=== PATIENT | female | born 1955 | race Caucasian/White ===

== ENCOUNTER 2022-11-08 08:58 | Outpatient (CLI) | payer BC, SELFPAY | END 2022-11-08 08:59 | disposition home or self-care (01) | LOC: NFLDREF 11-11 09:40 | PROVIDERS: PCP Physician Assistant Medical; Referring Provider Physician Assistant Medical; Visit Provider Physician Assistant Medical | DX: Z00.00 Encounter for general adult medical examination without abnormal findings (principal); R53.83 Other fatigue; I10 Essential (primary) hypertension | CPT/HCPCS: 80053; 80061; 82607; 83540; 83550; 84439; 84443; 84481; 86376 ==

== ENCOUNTER 2022-12-23 09:41 | Outpatient (CLI) | payer BC, SELFPAY | END 2022-12-23 09:42 | disposition home or self-care (01) | LOC: RAD 09:42 | PROVIDERS: PCP Physician Assistant Medical; Visit Provider Physician Assistant Medical | DX: I10 Essential (primary) hypertension (principal); R01.1 Cardiac murmur, unspecified | CPT/HCPCS: 93306 ==

== ENCOUNTER 2022-12-26 08:06 | Outpatient (CLI) | payer BC, SELFPAY | END 2022-12-26 08:07 | disposition home or self-care (01) | LOC: NFLDREF 16:37 | PROVIDERS: PCP Physician Assistant Medical; Referring Provider Physician Assistant Medical; Visit Provider Physician Assistant Medical | DX: R53.83 Other fatigue (principal); R74.8 Abnormal levels of other serum enzymes; I10 Essential (primary) hypertension | CPT/HCPCS: 80053; 82728; 86703; 86803 ==

== ENCOUNTER 2023-01-10 19:39 | Outpatient (CLI) | payer BC, SELFPAY ==
--- OUTSIDE RECORDS SUMMARY | 2023-01-10 19:42 | XMS_ITS | Continuity of Care Document ---
Author Name Unknown Organization [facility] Address [address] [address] [place] [address] Phone Care Team Providers Care Water Taxi Captain Name Role Phone Concha Wood CRNA Unavailable Unavailable Allergies, Adverse Reactions, Alerts Substance Reaction Status Criticality levofloxacin Intestinal issues th at turned into yeast infection(moderate) Active No Information morphine itching(moderate)itching(moderate) Active No Information No Known Allergies Resolved No Inform ation Medications Medication Instructions Dosage Effective Dates (start - stop) Status Comments spironolactone 50 mg tablet take 1 tablet by oral route 2 times every day 50 MG - Active Lexapro 10 mg tablet take 1 tablet by oral route every day 10 MG - Active Zilxi 1.5 % topical foam apply by topical route every day a thin layer to the affected area(s) at the same time each day at least 1 hour before bedtime 0.00 - Active citalopram 20 mg tablet take 1 Tablet by oral route every day 20 MG - No Longer Active Procedures Procedure Date Colonoscopy Flex; Dx (sep Pro) 21 Colonoscopy Flex; W/bx 1/mx Level Iv-surg Path Gross/micro 16 Advance Directives Directive Yes / No Effective Date File Name No Information Encounters Encounter Description Practice Location Reason(s) For Visit Diagnoses Date Provider Providers Copied on Encounter [facility], [address] [address], [place], [id number], tel:[phone] [facility] No Information 1 Israel Kern. [address], [place], [place], [id number] , [place]. tel:[phone] Referring Provider: Ronit Rivera MD, [address], [place], [address] . tel:[phone] [facility], [address] [address], [place], [place], [id number], [place] tel:[phone] [facility] GI Symptoms or Concerns (chief complaint) Colon, diverticulosisAlt ernating constipation and diarrheaScreening ColonoscopyScreen ing ColonoscopyPerson al history of colonic polypsEncounter for screening for malignant neoplasm of colonPersonal history of colonic polyps 1 Miguel Aguilar. [address], [place], [place], [id number] , [place]. tel:[phone] Referring Provider: [place], [address] [place], [address]. tel:[phone] [facility], [address] [address], [place], [place], [id number], [place] tel:[phone] [facility] No Information 1 Radha Amor. [address], [place], [place], [id number] , [place]. tel:[phone] [facility], [address] [address], [place], [address], [place] tel:[phone] [facility] Colon polypPersonal history of colonic polypsFamily history of colonic polypsEncounter for screening for malignant neoplasm of colonRectal polypFamily history of colonic polypsPersonal history of colonic polyps Sep- 6 Arnoldo Knott. [address] [facility] [address], [place], [place], [address] , [place]. tel:[phone] Referring Provider: Van[place], [address] [place], [address]. tel:[phone] Family History Family Member Type Diagnosis Age At Onset Problem (finding) Family history of malignant neoplasm of breast in first degree relative Father Problem (finding) Sister Problem (finding) Alive and well Problem (finding) Family history of malignant neoplasm of cervix uteri Mother Problem (finding) malignant neop lasm of breast in first degree relative Daughter Problem (finding) Alive and well Father Problem (finding) Colon polyps Father Problem (finding) Thyroid disorder Mother Problem (finding) malignant neoplasm of c ervix uteri Immunizations Vaccine Date Status Comments SARS-COV-2 (COVID-19) vaccin e, mRNA, spike protein, LNP, preservative free, 30 mcg/0.3mL dose administered Note: [facility] bi-direct ional interface ; Source: Other Registry SARS-COV-2 (COVID-19) vaccin e, mRNA, spike protein, LNP, preservative free, 30 mcg/0.3mL dose administered Note: [facility] bi-direct ional interface ; Source: Other Registry Juan Carlosuria Qd administered Note: [facility] bi-directional interface ; Source: Other Registry tetanus toxoid, reduced diphtheria toxoid, and acellular pertussis vaccine, adsorbed administered Note: [facility] b i-directional interface ; Source: Other Registry Juan Carlosuria Qd administered Note: [facility] bi-directional interface ; Source: Other Registry Juan Carlosuria Qd administered Note: [facility] bi-directional interface ; Source: Other Registry Juan Carlosuria Qd administered Note: [facility] bi-directional interface ; Source: Other Registry tetanus and diphtheria toxoi ds, adsorbed, preservative free, for adult use (2 Lf of tetanus toxoid and 2 Lf of diphtheria toxoid) administered Note: [facility] bi-direct ional interface ; Source: Other Registry Payers Payer name Insurance type Covered constitution party ID Authoriza tion(s) [employer] CI [id number] Social History Type Description Quantity Date Captured Comments Sex Female Smoking Status No Information Chief Complaint And Reason For Visit No Information Reason For Referral Reason For Referral No Information Plan Of Treatment Date Type Action Status No Information History Of Present Illness Encounter Date Complaint History Of Prese nt Illness GI Symptoms or Concerns Functional Status Date Functional Assessmen t No Information Instructions Date Instruction Additional Infor mation Diverticulosis/Diverticulitis Re lated to Colon, diverticulosis High Fiber Diet Related to Colon , diverticulosis Colon Cancer Prevention Related to Colon, diverticulosis Colon Polyps Related to Colon polyp Assessments Type Assessment Date No Information Patient Care Teams Name Effective Dates (start - stop) Status Members No Information
--- OUTSIDE RECORDS SUMMARY | 2023-01-10 19:42 | XMS_ITS | Patient Health Record ---
Author Name Unknown Organization [employer] Address [address] [place], [place] [id number] Care Team Providers Care Systems Programmer Name Role Phone Luzma Griffiths Unavailable [phone] Steven Reyes Unavailable [phone] Natacha Coulter Unavailable [phone] Pedro Marsh Unavailable Unavailable Marion eBan Unavailable [phone] MejíaClaudia Unavailable [phone] Jai Cora Unavailable [phone] PROBLEMS Type Condition ICD9-CM Code PMU55-DQ Code Onset Dates Condition Status W/U Status Risk SNOMED Code Notes Problem Female climacteric state N95.1 confirmed 654777108 Problem Unspecified menopausal and perimenopausa l disorder N95.9 confirmed 379629621 ALLERGIES Allergen (clinical drug ingredient) Drug/Non Drug Allergy documented on EMR Reaction Allergy Type Onset Date Status morphine Morphine Sulfate([facility] Code:[address]-34) Itching Drug Allergy Active Levaquin Gastro Drug Allergy Active Statin Medications Muscle Aches Non Drug Allergy Active ENCOUNTERS from 1955 to 2023-01-10 Encounter Location Date Provider Diagnosis [facility] [address] [place], [place] [id number] Jan, Luzma Griffiths [facility] [address] [place] [address] Aug, Pedro Marsh Unspecified menopausal and perimenopausal disorder N95.9 [facility] [address] [place] [address] Jul, Pedro Marsh Female climacteric state N95.1 and Medication management Z79.899 [place] [address] [place] [address] May, Marion Bean Unspecified menopausal and perimenopausal disorder N95.9 [place] [address] [place] [address] May, Steven Reyes Female climacteric state N95.1 and Medication management Z79.899 [place] [address] [place] [address] Feb, Steven Reyes Unspecified menopausal and perimenopausal disorder N95.9 ; Oily skin R23.4 and Acne L70.9 [place] [address] [place] [address] Feb, Marion Bean Unspecified menopausal and perimenopausal disorder N95.9 [place] [address] [place] [address] November, Marion Bean [place] [address] [place] [address] November, Marion Bean Unspecified menopausal and perimenopausal disorder N95.9 and Breast cancer screening by mammogram Z12.31 [place] [address] [place] [address] November, Luzma Farb Unspecified menopausal and perimenopausal disorder N95.9 [facility] [address] [place], [place] [id number] Aug, Luzma Farb Unspecified menopausal and perimenopausal disorder N95.9 [facility] [address] [place], [place] [id number] Jul, Luzma Farb Female climacteric state N95.1 [facility] [address] [place], [place] [phone] Apr, Luzma Farb [place] [address] [place] [address] Apr, Luzma Farb Unspecified menopausal and perimenopausal disorder N95.9 [facility] [address] [place] [address] Apr, Luzma Farb Unspecified menopausal and perimenopausal disorder N95.9 [facility] [address] [place], [place] [phone] Feb, Cora Jai Unspecified menopausal and perimenopausal disorder N95.9 [facility] [address] [place], [place] [phone] Jan, [facility] [address] [place] [phone] Jan, [facility] [address] [place], [place] [phone] Jan, [place] [address] [place] [address] Jan, Luzma Farb Unspecified menopausal and perimenopausal disorder N95.9 [place] [address] [place] [address] Dec, Luzma Farb Female climacteric N95.1 [place] [address] [place] [address] Dec, Luzma Farb Female climacteric state N95.1 [facility] [address] [place], [place] [phone] Oct, Luzma Farb Unspecified menopausal and perimenopausal disorder N95.9 [facility] [address] [place] [address] Oct, Luzma Farb Female climacteric state N95.1 [facility] [address] [place], [place] [phone] Sep, Luzma Farb Unspecified menopausal and perimenopausal disorder N95.9 [facility] [address] [place], [place] [phone] Sep, Luzma Griffiths [facility] [place] [address] [place] [address] Sep, [facility] climacteric state N95.1 SOCIAL HISTORY Tobacco Use: Social History Observation Description Date Details (start date - stop date) Never Smoker Sex Assigned At : Social History Observation Description Sex Assigned At Unknown Alcohol Screen (Audit-C) Question Answer Notes Did you have a drink containing alcohol in the p ast year? No Points 0 Interpretation Negative Tobacco Use/Smoking Question Answer Notes Are you a never smoker REASON FOR REFERRAL No Information VITAL SIGNS from 1955 to 2023-01-10 Height 60 in Aug, Weight 163.4 lbs Aug, BMI 31.91 kg/m2 Aug, Blood pressure systolic 112 mm Hg Aug, Blood pressure diastolic 78 mm Hg Aug, MEDICATIONS Medication SIG (Take, Route, Frequency, Duration) Notes Start Date End Date Status Xyzal Active Singulair Active Citalopram Hydrobromide 10 MG 1 tablet Orally Once a day Active Spironolactone 50 MG 1 tablet with food Orally Once a day for 90 days Feb, Active PAULINE PELLE Active RESULTS from 1955 to 2023-01-10 Component Value Reference Range Notes POTASSIUM Reviewed date:08/22/2019 13:24:38 Interpretation: Performing Lab:, PANCHO Frameri-Kimble [address] [facility], [place] PenaEdasHN[address] Fernando Mccullough M.D. Notes/Report: POTASSIUM 4.3 mmol/L 3.5-5.3 mmol/L ESTRADIOL Reviewed date:08/22/2019 13:24:39 Interpretation: Performing Lab:, PANCHO [facility]i-[place] [address], [place] HollandDrvrTJ[address] Fernando Mccullough M.D. Notes/Report: ESTRADIOL 84 pg/mL FSH Reviewed date:08/22/2019 13:24:39 Interpretation: Performing Lab:, PANCHO [facility]i-[facility] [address], [place] PenaVfbgZN[address] Fernando Mccullough M.D. Notes/Report: FSH 5.5 mIU/mL TESTOSTERONE, TOTAL, LC/MS/M S Reviewed date:08/22/2019 13:24:39 Interpretation: Performing Lab:, Debra LAWRENCE D.light DesignSofie Thuabbph74213 [facility] Danilo Bishop M.D., Ph.D Notes/Report: TESTOSTERONE, TOTAL, MS 131 ng/dL 2-45 ng/dL POTASSIUM Reviewed date:05/28/2019 10:20:28 Interpretation: Performing Lab:, Debra DELEON [employer]-[place] [address], [place] HollandIfuuQQ[address] Fernando Mccullough M.D. Notes/Report: POTASSIUM 4.6 mmol/L 3.5-5.3 mmol/L ESTRADIOL Reviewed date:05/28/2019 10:20:28 Interpretation: Performing Lab:, Debra DELEON [employer]-[place], [place] HollandDafoCH[address] Fernando Mccullough M.D. Notes/Report: ESTRADIOL 83 pg/mL FSH Reviewed date:05/28/2019 10:20:28 Interpretation: Performing Lab:, PANCHO Frameri-[place] [address], [place] HollandZbumMH[address] Fernando Mccullough M.D. Notes/Report: FSH 8.9 mIU/mL TESTOSTERONE, TOTAL, LC/MS/M S Reviewed date:05/28/2019 10:20:28 Interpretation: Performing Lab:, Debra LAWRENCE D.light DesignSofie Rybynikj38726 [facility] Danilo Bishop M.D., Ph.D Notes/Report: TESTOSTERONE, TOTAL, MS 140 ng/dL 2-45 ng/dL ESTRADIOL Reviewed date:02/18/2019 07:29:09 Interpretation: Performing Lab:, PANCHO Frameri-Wood [address], [place] HollandNrhzND[address] Fernando Mccullough M.D. Notes/Report: ESTRADIOL 54 pg/mL FSH Reviewed date:02/18/2019 07:29:09 Interpretation: Performing Lab:, PANCHO Frameri-[place] [address], [place] HollandUfsvXX[address] Fernando Mccullough M.D. Notes/Report: FSH 8.7 mIU/mL TESTOSTERONE, TOTAL, LC/MS/M S Reviewed date:02/18/2019 07:29:09 Interpretation: Performing Lab:, MELINDA [facility]ney [address] [facility], UwtyqoetDV[address] Danilo Bishop M.D., Ph.D Notes/Report: TESTOSTERONE, TOTAL, MS 83 ng/dL 2-45 ng/dL ESTRADIOL Reviewed date:11/19/2018 11:24:00 Interpretation: Performing Lab:, Debra DELEON [employer]-[place], [facility] CenterThsjEC[address] Fernando Mccullough M.D. Notes/Report: ESTRADIOL 67 pg/mL FSH Reviewed date:11/19/2018 11:24:00 Interpretation: Performing Lab:, Debra DELEON [employer]-Je[address], [facility] CenterVrjmVB[address] Fernando Mccullough M.D. Notes/Report: FSH 14.2 mIU/mL TESTOSTERONE, TOTAL, LC/MS/M S Reviewed date:11/19/2018 11:24:00 Interpretation: Performing Lab:, MELINDA [facility] [address] [facility], IxifhnigOQ[address] Danilo Bishop M.D., Ph.D Notes/Report: TESTOSTERONE, TOTAL, MS 125 ng/dL 2-45 ng/dL ESTRADIOL Reviewed date:08/20/2018 15:52:30 Interpretation: Performing Lab:, Debra DELEON [employer]-Je[address]ias [address], [facility] CenterNtzgOM[address] Fernando Mccullough M.D. Notes/Report: ESTRADIOL 58 pg/mL FSH Reviewed date:08/20/2018 15:52:30 Interpretation: Performing Lab:, Debra DELEON [employer]-Je[address], [facility] CenterFjfjYI[address] Fernando Mccullough M.D. Notes/Report: FSH 17.8 mIU/mL TESTOSTERONE, TOTAL, LC/MS/M S Reviewed date:08/20/2018 15:52:30 Interpretation: Performing Lab:, Debra LAWRENCE [facility] [address] [facility], SnjzbatnQT[address] Danilo Bishop M.D., Ph.D Notes/Report: TESTOSTERONE, TOTAL, MS 114 ng/dL 2-45 ng/dL ESTRADIOL Reviewed date:04/23/2018 13:41:03 Interpretation: Performing Lab:, Debra DELEON [facility]ias [address], [place] HollandMbyqPQ[address] Fernando Mccullough M.D. Notes/Report: ESTRADIOL 52 pg/mL FSH Reviewed date:04/23/2018 13:41:03 Interpretation: Performing Lab:, Debra DELEON [facility]ias [address], [place] DtjdBC[address] Fernando Mccullough M.D. Notes/Report: FSH 25.1 mIU/mL TESTOSTERONE, TOTAL, LC/MS/M S Reviewed date:05/04/2018 08:40:33 Interpretation: Performing Lab:, Debra LAWRENCE D.light DesignSofie [address] [place] , ZyxpnaclCE[address] Danilo Bishop M.D., Ph.D Notes/Report: TESTOSTERONE, TOTAL, MS 139 ng/dL 2-45 ng/dL ESTRADIOL Reviewed date:01/22/2018 16:35:44 Interpretation: Performing Lab:, Debra DELEON [employer]-Je[place]ias [address], [place] PenaNwotQM[address] Fernando Mccullough M.D. Notes/Report: ESTRADIOL 38 pg/mL FSH Reviewed date:01/22/2018 16:35:44 Interpretation: Performing Lab:, Debra DELEON [employer] [facility] [address], [place] HollandEpzsBS[address] Fernando Mccullough M.D. Notes/Report: FSH 41.8 mIU/mL TESTOSTERONE, TOTAL, LC/MS/M S Reviewed date:01/22/2018 16:35:44 Interpretation: Performing Lab:, Debra LAWRENCE D.light DesignSofie Lidjiite[address] [place], TfvwbeciVW[address] Danilo Bishop M.D., Ph.D Notes/Report: TESTOSTERONE, TOTAL, LC/MS/MS 100 ng/dL 2-45 ng/dL ESTRADIOL Reviewed date:11/07/2017 13:08:52 Interpretation: Performing Lab:, Debra DELEON [employer]-Je[place], [place] PenaOkecTR[address] Fernando Mccullough M.D. Notes/Report: ESTRADIOL 52 pg/mL FSH Reviewed date:11/07/2017 13:08:52 Interpretation: Performing Lab:, PANCHO Frameri-Wood [address], [facility] CenterDnxaYY[address] Fernando Mccullough M.D. Notes/Report: FSH 20.7 mIU/mL TESTOSTERONE, TOTAL, LC/MS/M S Reviewed date:11/14/2017 13:48:30 Interpretation: Performing Lab:, Debra LAWRENCE-Tan Hxejqufd[address]78 [place] , ItnflgpcIY[address] Danilo Bishop M.D., Ph.D Notes/Report: TESTOSTERONE, TOTAL, LC/MS/MS 224 ng/dL 2-45 ng/dL ESTRADIOL Reviewed date:10/02/2017 16:36:01 Interpretation: Performing Lab:, Debra DELEON [employer]-Wood [address], [facility] CenterMtdpDD[address] Fernando Mccullough M.D. Notes/Report: ESTRADIOL 17 pg/mL FSH Reviewed date:10/02/2017 16:36:01 Interpretation: Performing Lab:, PANCHO Frameri-Wood [address], [facility] CenterLocwXV[address] Fernando Mccullough M.D. Notes/Report: FSH 80.4 mIU/mL LH Reviewed date:10/02/2017 16:36:01 Interpretation: Performing Lab:, Debra DELEON [employer]-Wood [address], [place] ZwptNE[address] Fernando Mccullough M.D. Notes/Report: LH 33.6 mIU/mL PROLACTIN Reviewed date:10/02/2017 16:36:01 Interpretation: Performing Lab:, PANCHO Frameri-Wood [address], [facility] CenterGvbzMD[address] Fernando Mccullough M.D. Notes/Report: PROLACTIN 5.0 ng/mL CORTISOL, TOTAL Reviewed date:10/02/2017 16:36:01 Interpretation: Performing Lab:, PANCHO Frameri-Wood [address], [place] CfdwZU[address] Fernando Mccullough M.D. Notes/Report: CORTISOL, TOTAL 6.1 mcg/dL SEX HORMONE BINDING GLOBULIN Reviewed date:10/02/2017 16:36:01 Interpretation: Performing Lab:, CB, [facility]ias Hknh[address]64 [facility], [place] ZqewOX[address] Fernando Mccullough M.D. Notes/Report: SEX HORMONE BINDING GLOBULIN 20 nmol/L 14-73 nmol/L TESTOSTERONE, TOTAL, LC/MS/M S Reviewed date:10/02/2017 16:36:01 Interpretation: Performing Lab:, SLI, [facility] Ckxcmelb[address] [facility], DwhbnzjhMT[address] Danilo Bishop M.D., Ph.D Notes/Report: TESTOSTERONE, TOTAL, LC/MS/MS 4 ng/dL 2-45 ng/dL TESTOSTERONE, FREE, LC/MS/MS Reviewed date:10/02/2017 16:36:01 Interpretation: Performing Lab:, MELINDA, [facility]ney Xvuxlqzv16336 [facility], NftrccvwCT[address] Danilo Bishop M.D., Ph.D Notes/Report: TESTOSTERONE, FREE, LC/MS/MS 0.6 pg/mL 0.2-5.0 pg/m L REASON FOR VISIT No Information MEDICAL (GENERAL) HISTORY Type Description Date Medical History Anxiety Surgical History Tonsillectomy Surgical History Hernia Repair Surgical History Bilateral Tubal Ligation Surgical History D&C Surgical History Ablation Surgical History Hysterectomy MENTAL STATUS No Information ASSESSMENTS Encounter Date Diagnosis Assessment Notes Treatment Notes Treatment Clinical Notes November, Female climacteric state (ICD-10 - N95.1) Aug, Unspecified menopausal and perimenopausal disorder (ICD-10 - N95.9) SottoPelle was inserted today per patient desires and medical recommendation. After care and follow up instructions were reviewed with patient in great detail. Patient states that all questions have been answered to her satisfaction. Aug, Other Ice pack x20min , 5 times today Follow up: Jul, Female climacteric state (ICD-10 - N95.1) Jul, Medication management (ICD-10 - Z79.899) May, Unspecified menopausal and perimenopausal disorder (ICD-10 - N95.9) SottoPelle was inserted today per patient desires and medical recommendation. After care and follow up instructions were reviewed with patient in great detail. Patient states that all questions have been answered to her satisfaction. May, Other Ice pack x20min , 5 times today May, Female climacteric state (ICD-10 - N95.1) May, Medication management (ICD-10 - Z79.899) Feb, Unspecified menopausal and perimenopausal disorder (ICD-10 - N95.9) SottoPelle was inserted today per patient desires and medical recommendation. After care and follow up instructions were reviewed with patient in great detail. Patient states that all questions have been answered to her satisfaction. Feb, Oily skin (ICD-10 - R23.4) Start spironolactone (50mg) for oily/acne skin. F/u at next insertion visit Feb, Acne (ICD-10 - L70.9) Feb, Other Ice pack x20min , 5 times today Feb, Unspecified menopausal and perimenopausal disorder (ICD-10 - N95.9) November, Unspecified menopausal and perimenopausal disorder (ICD-10 - N95.9) SottoPelle was inserted today per patient desires and medical recommendation. After care and follow up instructions were reviewed with patient in great detail. Patient states that all questions have been answered to her satisfaction. November, Breast cancer screening by mammogram (ICD-10 - Z12.31) November, Other Ice pack x20min , 5 times today November, Unspecified menopausal and perimenopausal disorder (ICD-10 - N95.9) Aug, Unspecified menopausal and perimenopausal disorder (ICD-10 - N95.9) SottoPelle was inserted today per patient desires and medical recommendation. After care and follow up instructions were reviewed with patient in great detail. Patient states that all questions have been answered to her satisfaction. Aug, Other Ice pack x20min , 5 times today Follow up: Sottopelle insertion 3 months with labs 1 wk prior. Jul, Female climacteric state (ICD-10 - N95.1) Apr, Unspecified menopausal and perimenopausal disorder (ICD-10 - N95.9) SottoPelle was inserted today per patient desires and medical recommendation. After care and follow up instructions were reviewed with patient in great detail. Patient states that all questions have been answered to her satisfaction. Apr, Other Ice pack x20min , 5 times today Follow up: Sottopelle insertion 3 months with labs 1 wk prior. Apr, Unspecified menopausal and perimenopausal disorder (ICD-10 - N95.9) Feb, Unspecified menopausal and perimenopausal disorder (ICD-10 - N95.9) Jan, Unspecified menopausal and perimenopausal disorder (ICD-10 - N95.9) SottoPelle was inserted today per patient desires and medical recommendation. After care and follow up instructions were reviewed with patient in great detail. Patient states that all questions have been answered to her satisfaction. Jan, Other Ice pack x20min , 5 times today Follow up: Sottopelle insertion 3 months with labs 1 wk prior Dec, Female climacteric (ICD-10 - N95.1) Dec, Female climacteric state (ICD-10 - N95.1) Oct, Unspecified menopausal and perimenopausal disorder (ICD-10 - N95.9) Oct, Other No booster give n today d/t patient report of improvement and lab results. Follow up: Sottopelle insertion 2 months with labs 1 wk prior. Discussed water retention, reassurance given. Instructed pt to call with any new or worsening symptoms. Oct, Female climacteric state (ICD-10 - N95.1) Sep, Unspecified menopausal and perimenopausal disorder (ICD-10 - N95.9) Sep, Other Ice pack x20min , 5 times today Follow up: Pauline labs 4 wks, Pauline f/u visit 5 wks Sep, Female climacteric state (ICD-10 - N95.1) Sep, Other Mammogram curre nt Method of contraception: NA Discussed HRT risks/benefits, and reviewed patient education and informed consent in HRT packet. Patient was given a copy of the Sottopelle consent forms to take home and review. Discused potenial side effects of fluid retention, swelling, breast tenderness, nipple sensitivity, uterine spotting, mood swings and irritability, acne, hair loss and hair growth. Labs drawn. She will return for a visit to review results and have Sottopelle insertion, if a good candidate. Patient verbalizes understanding to plan of care. Total time spent with patient is 45 minutes, with >50% of time spent in counseling. PLAN OF TREATMENT Treatment Notes Assessment Notes Clinical Notes Unspecified menopausal and perimenopausal disorder SottoPelle was inserted today per patient desires and medical recommendation. After care and follow up instructions were reviewed with patient in great detail. Patient states that all questions have been answered to her satisfaction. Unspecified menopausal and perimenopausal disorder SottoPelle was inserted today per patient desires and medical recommendation. After care and follow up instructions were reviewed with patient in great detail. Patient states that all questions have been answered to her satisfaction. Unspecified menopausal and perimenopausal disorder SottoPelle was inserted today per patient desires and medical recommendation. After care and follow up instructions were reviewed with patient in great detail. Patient states that all questions have been answered to her satisfaction. Unspecified menopausal and perimenopausal disorder SottoPelle was inserted today per patient desires and medical recommendation. After care and follow up instructions were reviewed with patient in great detail. Patient states that all questions have been answered to her satisfaction. Unspecified menopausal and perimenopausal disorder SottoPelle was inserted today per patient desires and medical recommendation. After care and follow up instructions were reviewed with patient in great detail. Patient states that all questions have been answered to her satisfaction. Unspecified menopausal and perimenopausal disorder SottoPelle was inserted today per patient desires and medical recommendation. After care and follow up instructions were reviewed with patient in great detail. Patient states that all questions have been answered to her satisfaction. Unspecified menopausal and perimenopausal disorder SottoPelle was inserted today per patient desires and medical recommendation. After care and follow up instructions were reviewed with patient in great detail. Patient states that all questions have been answered to her satisfaction. Oily skin Start spironolactone (50mg) for oily/acne skin. F/u at next insertion visit Pending Tests Test Name Order Date ESTRADIOL 2019-11-28 FSH 2019-11-28 TESTOSTERONE, TOTAL, LC/MS/MS 2019-11-28 MAMMOGRAM, SCREENING 2018-11-22 ESTRADIOL 2018-03-13 FSH 2018-03-13 TESTOSTERONE, TOTAL, LC/MS/MS 2018-03-13 Insurance Providers Payer Name Payer Address Payer Phone Insured Name Patient Relationship to Insured Coverage Start Date Coverage End Date Subscriber Number Group Number [employer] (Ins [facility]) [address] [address] [facility] [id number] Jason OGDEN Self - patient is the insured [id number] [phone]
--- NOTE | 2023-01-24 08:47 | W.PM.SLEEP ---
Sleep Study Details Details Interpreting Provider: Roland Date of Sleep Study: 01/10/23 Sleep Study Details: STUDY TYPE:? Home unattended ? BMI:? 31.6 ORDERING PROVIDER:Sofia Riley INDICATION:? Concerns about sleep apnea ? SLEEP SUMMARY:? 466.5 minutes monitored RESPIRATORY SUMMARY:? AHI 12.6, supine 16.5, left lateral 7.2, right lateral 2 Low oxygen 87 0.6% of study less than 90% oxygen level Snoring 0.3% PERIODIC LIMB MOVEMENTS OF SLEEP:? Not recorded during home study CARDIAC:? Range 49-88, mean 60.9 IMPRESSION:? Mild obstructive sleep apnea with supine position dependency RECOMMENDATION: Treatment options would include positional therapy possibly, AutoSet CPAP pressure 4-17, dental appliance.
== END 2023-01-10 19:40 | disposition home or self-care (01) ==
LOC: SLEEP 19:41
PROVIDERS: PCP Physician Assistant Medical; Visit Provider Physician Assistant Medical
DX: G47.33 Obstructive sleep apnea (adult) (pediatric) (principal)
CPT/HCPCS: 95806

== ENCOUNTER 2023-01-31 18:07 | Outpatient (CLI) | payer BC, SELFPAY ==
--- NOTE | 2023-01-31 18:30 | CRLHL7_ITS ---
For Patients: As a result of the Century Cures Act, medical imaging exams and procedure reports are released immediately into your electronic medical record. You may view this report before your referring provider. If you have questions, please contact your health care provider. BILATERAL SCREENING MAMMOGRAM WITH COMPUTER-AIDED DETECTION AND TOMOSYNTHESIS TECHNIQUE: CC and MLO views were obtained. These mammographic images have been obtained using full-field digital technique. These mammographic images were interpreted with the benefit of computer-aided detection. Breast Tomosynthesis was used in this interpretation. COMPARISON FILM: 09/21/20, 12/18/18, 12/07/18. FINDINGS: The breasts are heterogeneously dense, which may obscure small masses IMPRESSION: There is no radiographic evidence for malignancy. ASSESSMENT: BI-RADS Category 1: Negative RECOMMENDATION: Routine screening mammogram in 1 year. A lay language report of this examination will be provided to the patient. Barrington Landry M.D. Diagnostic Radiologist [email or web address] Transcribed: 3:13 [email or web address]/Dictated by: Barrington Landry MD @ 02/08/2023 11:01:00 AM (Electronically Signed)
== END 2023-01-31 18:08 | disposition home or self-care (01) ==
LOC: MAMMO 18:07
PROVIDERS: PCP Physician Assistant Medical; Visit Provider Physician Assistant Medical
DX: Z12.31 Encounter for screening mammogram for malignant neoplasm of breast (principal); R92.2 Inconclusive mammogram
CPT/HCPCS: 77063; 77067

== ENCOUNTER 2023-04-20 14:30 | Outpatient (RCR) | payer BC, SELFPAY | END 2023-05-30 10:33 | disposition home or self-care (01) | PROVIDERS: PCP Physician Assistant Medical; Visit Provider Orthopaedic Surgery | DX: M79.605 Pain in left leg (principal); Z51.89 Encounter for other specified aftercare | CPT/HCPCS: 97032; 97110; 97140; 97161 ==

== ENCOUNTER 2023-06-19 12:08 | Outpatient (CLI) | payer BC, SELFPAY | END 2023-06-19 12:09 | disposition home or self-care (01) | LOC: LKVREF 12:09 | PROVIDERS: PCP Physician Assistant Medical; Visit Provider Physician Assistant | DX: R68.82 Decreased libido (principal) | CPT/HCPCS: 84270; 84402; 84403 ==

== ENCOUNTER 2024-04-19 13:07 | Outpatient (CLI) | payer BC, SELFPAY ==
--- OUTSIDE RECORDS SUMMARY | 2024-04-19 13:12 | XMS_ITS | Patient Health Record ---
Author Organization [facility] [place] Address [address] [place] [address] Care Team Providers Care Financial Aid Officer Name Role Phone Provider, Outside Primary Care Provider [phone] Allergies Allergen (clinical drug ingredient) Drug/Non Drug Allergy documented on EMR Reaction Allergy Type Onset Date Status Information temporarily unavailable morphine itching Drug Allergy Active Information temporarily unavailable Levaquin intestinal yeat infection Drug Allergy Active Reason For Referral No Information Medications Medication SIG (Take, Route, Frequency, Duration) Notes Start Date End Date Status Lexapro 10 MG 1 tablet Orally Once a day for 30 days Active Pravastatin Sodium 10 MG 1 tablet Orally once a week at hs 11/06/2013 Unknown Triamcinolone Acetonide 0.1 % 1 application to affected area Externally Twice a day up to 10-14 days 11/06/2013 Unknown Flonase 50 MCG/ACT 2 sprays in each nos tril Nasally Once a day 06/26/2012 Unknown metFORMIN HCl 500 MG 1 tab with a meal O rally qd for 30 day(s) Unknown ALPRAZolam 0.5 MG 1 tablet Orally Thre e times a day 10/18/2012 Unknown Immunizations Vaccine Route Administration Date Status Comme nts Influenza Unknown 04/01/2009 Administered Pneumococcal ([id number]) PPSV23 (2yr+) Unknown 03/03/2009 Administered Pneumococcal 13 (PCV13) Conjugate Vaccine ([id number]) IM Intramuscular 10/24/2012 Administered Tdap (Adacel or Boostrix) IM Intramuscular 10/24/2012 Admi nistered Social History Tobacco Use: Social History Observation Description Date Details (start date - stop date) Never Smoker NA - NA Smoking Status: Question Answer Notes Patient is a never smoker Problems Problem Type SNOMED Code ICD Code Onset Dates Problem Status W/U Status Risk Notes Problem Acute sinusitis (64915523) Sinusitis acute (461.9) Active confirmed Problem Fatigue (01155777) Fatigue (780.79) Active confirmed Problem Anxiety (91284095) Anxiety (300.00) Active confirmed Problem Seasonal allergy (249965053) Seasonal allergies (477.9) Active confirmed Problem Prediabetes (658668223) Pre-diab etes (790.29) 013 Active confirmed Problem Irritable bowel syndrome (26483079) IBS (irritable bowel syndrome) (564.1) Active confirmed Problem Pure hypercholesterolemia (967860965) Elevated LDL cholesterol level (272.0) Active confirmed Problem Weight gain (1677195) Weight gai n (783.1) Active confirmed Problem Alopecia (24687619) Hair loss (704.00) Active confirmed Problem Menopausal and postmenopausal disorders (857665000) Menopausal disorder (627.9) Active confirmed Problem Polycystic ovaries (73023826) PCOS (polycystic ovarian syndrome) (256.4) Active confirmed Problem Dyshidrotic eczema (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) Dyshidrotic eczema (705.81) Active confirmed Problem Elevated blood press ure (50353444) Elevated blood pressure (796.2) Active confirmed Problem Insulin resistance (62585399) Insulin resistance (277.7) Active confirmed Problem Family history: Arthritis (102620689) Family history of rheumatoid arthritis (V17.7) Active confirmed Problem Intestinal gas excretion (55444619) Intestinal gas excretion (787.3) Active confirmed Problem Disorder of thyroid gland (72496008) Disorder of thyroid gland (246.9) Active confirmed Plan Of Treatment No Information Insurance Providers Payer Name Payer Address Payer Phone Subscriber Number Group Number Insured Name Patient Relationship to Insured Coverage Start Date Coverage End Date BCBS ITS INDEMNITY PPO [address] [place], [place] [id number] Alla Romano Self - patient is the insured 3 Medical (General) History Medical History History ICD Code seasonal allergies anxiety Surgical History Surgery Date(Month/Year) ablation uterine polyps removed (twice) tubal ligation hernia repair left inguinal tonsillectomy age 12 hysterectomy with one only oopherectomy 2011 Hospitalization History Reason Date(Month/Year) hysterectomy 2011 chest pressure 04/2013
--- OUTSIDE RECORDS SUMMARY | 2024-04-19 13:12 | XMS_ITS | Patient Health Record ---
Author Organization [facility] Address [address] [place] [address] Care Team Providers Care Document Preparer Microfilming Name Role Phone Luzma Griffiths Primary Care Provider Allergies Allergen (clinical drug ingredient) Drug/Non Drug Allergy documented on EMR Reaction Allergy Type Onset Date Status Substance with 5-jylrtuu-8-methylglu taryl-coenzyme A reductase inhibitor mechanism of action (substance) Statin Medications (uncoded) Muscle Aches Allergy Active Levaquin Gastro Drug Allergy Active morphine Morphine Sulfate Itching Drug Allergy Active Reason For Referral Reason Dyspareunia consult referral 1.[address] ST [address] Pt wcb 2.7.24 [address] Diagnosis 1 Deep dyspareunia (N9 4.12) Referred Organization [facility] Referred Provider Luzma Griffiths [place]erred Address [address] [place], [place],[address], Referred Provider Specialty Nurse Cristiana chan Referral Priority Routine Medications Medication SIG (Take, Route, Frequency, Duration) Notes Start Date End Date Status Spironolactone 50 MG 1 tablet with food Orally Once a day for 90 days 02/21/2019 Active Xyzal Active Citalopram Hydrobromide 10 MG 1 tablet Orally Once a day Active PAULINE PELLE Active Singulair Active Social History Tobacco Use: Social History Observation Description Date Details (start date - stop date) Never Smoker NA - NA Tobacco Use/Smoking Question Answer Notes Are you a nonsmoker Alcohol Screen (Audit-C) Question Answer Notes Did you have a drink containing alcohol in the p ast year? 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) Active confirmed Problem Deep dyspareunia (317001381) Deep dyspareunia (N94.12) Active confirmed Plan Of Treatment Pending Test Test Name Order Date ESTRADIOL 03/13/2018 FSH 03/13/2018 TESTOSTERONE, TOTAL, LC/MS/MS 03/13/2018 MAMMOGRAM, SCREENING 11/22/2018 Insurance Providers Payer Name Payer Address Payer Phone Subscriber Number Group Number Insured Name Patient Relationship to Insured Coverage Start Date Coverage End Date BCBS - (Client Bill) [address] [place] [phone] [id number] Camelia OGDEN Self - patient is the insured Medical (General) History Medical History History ICD Code Anxiety Surgical History Surgery Date(Month/Year) Tonsillectomy Hernia Repair Bilateral Tubal Ligation D&C Ablation Hysterectomy
--- OUTSIDE RECORDS SUMMARY | 2024-04-19 13:13 | XMS_ITS | Clinical Summary ---
Author Organization [facility] Address [address] [place] [address] Care Team Providers Care Patrol Police Sergeant Name Role Phone Unavailable Primary Care Provider Unavailabl e Source Comments You are receiving this document as you are listed as the primary care provider,follow-up provider, or the patient has been referred to you for consultation.This is in compliance with the Medicare and[facility] Incentive Program,which states Providers who transition their patient to another setting of careor provider of care or refers their patient to another provider of care shouldprovide summary care record for each transition of care or referral. Volusion Allergies Active Allergy Reactions Criticality Noted Date Comments Levofloxacin 02/06/2017 GI upset Morphine 02/06/2017 itchy Medications Medication Sig Dispensed Refills Start Date End Date Status citalopram (CELEXA) 20 MG tablet Take 20 mg by mouth daily. 3 10/30/2016 Active hydrocortisone 2.5 % cream Apply topically two times a day. Apply to affected areas, face, neck, ears twice daily x up to 3 weeks as needed for itching, rash. 60 g 02/06/2017 Active Active Problems No known active problems Social History Tobacco Use Types Packs/Day Years Used Date Smoking Tobacco: Never Smokeless Tobacco: Never Sex and Gender Information Value Date Recorded Sex Assigned at Not on file Gender Identity Not on file Sexual Orientation Not on file Plan of Treatment Health Maintenance Due Date Last Done Comments Colon Cancer Screening Plan Due 1955 Hep C Screening (Preventive Services) 1955 Mammogram 1955 Adult Preventive Visit 11/09/1975 DTaP/Tdap/Td (1 - Tdap) 1976 Cholesterol 2002 Zoster/Shingles (1 of 2) 11/09/2007 Pneumococcal 65+ Yrs (1 - PCV) 2022 COVID-19 Vaccine (1 - 2023-2 5 season) 2024 Influenza (#1) 2024 RSV (1 - 1-dose 75+ series) 2032 HepA Aged Out No longer eligi ble based on patient's age to complete this topic HepB Aged Out No longer eligi ble based on patient's age to complete this topic Hib Aged Out No longer eligi ble based on patient's age to complete this topic IPV (Polio) Aged Out No longer eligi ble based on patient's age to complete this topic MCV4 Aged Out No longer eligi ble based on patient's age to complete this topic
--- OUTSIDE RECORDS SUMMARY | 2024-04-19 13:13 | XMS_ITS | Clinical Summary ---
Author Organization [facility] Address [place], [place] [address] Care Team Providers Care Senior Quality Assurance Analyst Name Role Phone Vania Lewis MD Primary Care Provider + Allergies Active Allergy Reactions Criticality Noted Date Comments Levofloxacin Other - Describe In Comment Field 08/15/2014 intestinal yeast infection Morphine Itching 08/15/2014 Essznvb-Ywq-Vhb Reductase Inhibitors Arthralgia,*Unknown 08/15/2014 Severe joint pains Medications Medication Sig Dispensed Refills Start Date End Date Status escitalopram oxalate (LEXAPRO) 10 mg tabletIndications:G eneralized anxiety disorder TAKE 1 TABLET BY MOUTH EVERY MORNING 90 Tablet 1 07/20/2021 Active Soolantra 1 % topical cream APPLY TO THE FACE DAILY 02/17/2022 Active nystatin powder (MYCOSTATIN) powder APPLY TOPICALLY UNDER THE BREASTS NEEDED 02/22/2022 Active albuterol HFA (PRO-AIR; VENTOLIN; PROVENTIL) 90 mcg/actuation inhalerIndications: Acute bronchitis, viral Inhale 1-2 Puffs by mouth every 4 hours if needed for Shortness Of Breath or Wheezing. 1 Each 04/28/2022 Active codeine-guaiFENesin (ROBITUSSIN AC) 10-100 mg/5 mL liquidIndications:A cute bronchitis, viral Take 5-10 mL by mouth every 4 hours if needed for Cough. Max dose 60 mL per 24 hrs. 240 mL 04/28/2022 Active citalopram (CELEXA) 10 mg tablet 1 tablet Active losartan (COZAAR) 50 mg tablet Take 50 mg by mouth once daily. 09/19/2023 Active estradioL (ESTRACE) 0.01% (0.1 mg/g) vaginal cream USE 2 GRAM VAGINALLY DAILY X2 WEEKS THEN DECREASE TO 1 GRAM VAGINALLY 2 TIMES A WEEK THEREAFTER 08/09/2023 Active progesterone micronized (Prometrium) 100 mg capsuleIndications: Deep dyspareunia Take 1 Capsule (100 mg) by mouth at bedtime. This product contains peanut oil. Please verify patient allergies. 30 Capsule 5 10/06/2023 Active estradioL (VAGIFEM) 10 mcg tab vaginal tabletIndications:D eep dyspareunia Insert 1 Tablet (10 mcg) into the vagina every Monday and . 30 Tablet 4 10/09/2023 Active Active Problems Problem Noted Date Diagnosed Date Family history of colonic polyps 04/20/2016 Overview (04/20/2016): Colonoscopy 03/2016 1 small hyperplastic polyp; repeat in 2020 due to family history Anxiety 10/01/2014 Hyperlipidemia 08/17/2014 IGT (impaired glucose tolerance) 08/17/2014 History of Laura thyroiditis 08/17/2014 Preventative health care 08/17/2014 Overview (08/17/2014): Patient had levaquin and developed intestinal yeast infection which needed 3 elimination diets to treat. Encounters Date Type Department Care Team Description 04/18/2024 Refill [facility] [address] [place] [address] Raymond Teresa MBBS Refill Request (Progesterone Micronized) 02/13/2024 Refill [facility] [address] [place] [address] Raymond Teresa MBBS Refill Request (Progesterone Micronized) from Last 3 Months Immunizations Name Administration Dates Next Due COVID-19 vaccine ([employer] 30mcg/0.3mL) SRINIVAS CINTRON 11/09/2020,10/19/2020 Influenza, IIV3 (Age >=3 years) 04/08/2021 Influenza, IIV4 08/13/2020, 0,06/01/2017,07/29/19 17,06/25/2015 Td (Age >=7 Years) 07/17/2009 Tdap 09/02/2019 Family History Medical History Relation Name Comments Heart attack Brother 1 Good Health Brother 2 Good Health Daughter Heart Disease Father 3 v CABG Hyperlipidemia Father Hypertension Father Cancer-breast Mother early breast c ancer Diabetes Mother Hyperlipidemia Mother Other Mother mac deg, [place] Stroke Mother good recovery Cancer-breast Other 1/2 SISTER ON FATHERS 50'S Other Sister prediabetes Good Health Son Relation Name Status Comments Brother 1 Alive Brother 2 Alive Daughter Alive Father Mother Other 1/2 SISTER ON FATHERS Alive Sister Son Alive Social History Tobacco Use Types Packs/Day Years Used Date Smoking Tobacco: Never Smokeless Tobacco: Never Tobacco Cessation:Counseling Given: Yes Comments:states no passive exposure as of 07/01/17 Alcohol Use Standard Drinks/Week Comments Yes 0 (1 standard drink = 0.6 oz pur e alcohol) 1 glass of wine daily PHQ-2 Answer Date Recorded PHQ-2 TOTAL SCORE 0 12/29/2020 Social Connections Answer Date Recorded Frequency of Communication with Friends and Fami ly Not on file 07/17/2021 Financial Resource Strain Answer Date R ecorded Difficulty of Paying Living Expenses Not on file 07/17/2021 Difficulty of Paying Living Expenses Not on file 07/17/2021 Sex and Gender Information Value Date Recorded Sex Assigned at Not on file Gender Identity Female 10/16/2020 8:08 AM CDT Sexual Orientation Choose not to disclose 2020 8:08 AM CDT Obstetrics History Para Term AB IAB SAB Ectopic Multiple Livin g Live Births 2 2 2 2 Date Outcome GA Total Labor Labor/2nd/3rd Weight Sex Type Anes PTL Mariah A1 A5 Name Clin Term Term Comments Vaginal deliveries. No compl ications with or deliveries. She did not breast feed. Last Filed Vital Signs Vital Sign Reading Time Taken Comments Blood Pressure 146/74 10/06/2023 1:27 PM CDT Pulse 68 10/06/2023 1:27 PM CDT Temperature 37.1 ??C (98.8 ??F) 04/28/2022 3:54 PM CD T Respiratory Rate 16 04/28/2022 3:54 PM CDT Oxygen Saturation 95% 04/28/2022 3:54 PM CDT Inhaled Oxygen Concentration - - Weight 74.8 kg (165 lb) 10/06/2023 1:27 PM CDT Height 152.4 cm (5') 10/06/2023 1:27 PM CDT Body Mass Index 32.22 10/06/2023 1:27 PM CDT Plan of Treatment Health Maintenance Due Date Last Done Comments Hepatitis C screening for ag e 18-79 11/09/1975 Zoster (shingles) series for age 50+ (1 of 2) 11/09/2007 Mammogram for age 45-75 09/21/2021 09/22/19, 12/18/2018, 12/07/2018, Additional history exists Depression screening for age 12+ 12/29/2021 12/29/2020, 08/13/2020, 11/29/2018, Additional history exists DEXA/DXA scan for age 65+ 2022 06/17/2019 Pneumococcal series for age 65+ (1 of 1 - PCV) 2022 COVID-19 vaccine series ( season) 2024 06/04/2023, 08/13/2022, 06/17/2021, Additional history exists Influenza for age 65+ 03/17/2024 04/08/2021 , 08/13/2020, 09/02/2019, Additional history exists BMI (ht and wt on same day) for age 18+ 10/05/2024 10/06/2023, 12/29/2020, 11/28/2018, Additional history exists Lipids for age 45-75 12/29/2025 12/29/2020, 11/28/2018, 06/01/2017, Additional history exists Colonoscopy through age 75 05/14/2026 05/14/2021, Tetanus booster 09/02/2029 09/02/2019, 07/17/2009 Tdap Completed 09/02/2019 Procedures Procedure Name Priority Date/Time Associated Diagnosis Comments SCAN-COLONOSCOPY 05/14/2021 8:00 AM CDT LIPID PANEL W REFLEX MEASURED LDL Routine 12/29/2020 10:14 AM CDT Routine general medical examination at a health care facility XR MAMMO BILAT SCREENING Routine 09/21/2020 4:01 PM PRINTING EQUIPMENT MECHANIC APPRENTICE Encounter for screening for malignant neoplasm of breast, unspecified screening modality XR DXA BONE DENSITY 2 SITES AXIAL Routine 06/17/2019 9:21 AM PRINTING EQUIPMENT MECHANIC APPRENTICE History of Laura thyroiditis Post-menopausal from Last 3 Months or Most Recently Relevant to Health Maintenance Results * SCAN-COLONOSCOPY (05/14/2021 8:00 AM CDT) Narrative Procedure Note Ronit Rivera MD - 05/14/2021 7:05 AM CDT [facility] [address], [address], [place] [address] Patient Name: Justino Romano Gender: Female Exam Date: 05/14/2021 Visit Number: [id number] Age: 65 Years 6 Months Date of : 1955 Attending MD: Ronit Rivera MD Medical Record#: [id number] ----- Procedure: Colonoscopy Indications: Previous adenomatous polyp(s) Referring MD: Lamar Ramsey MD Primary MD: Lamar Ramsey MD Medications: Admitting Medications: 0.9% Normal Saline at TKO Intra Procedure Medications: Patient received monitored anesthesia care. Complications: No immediate complications Procedure: An examination of the heart and lungs was performed and found to be withinacceptable limits. The patient was therefore deemed a reasonablecandidate for endoscopy and monitored anesthesia care. The risks and benefits of the procedure were explained to the patient.After obtaining informed consent, the patient received monitoredanesthesia care and I passed the scope without difficulty via the rectum to the ileum. The appendiceal orificeand ic valve were identified. The scope was retroflexed during theexamination The quality of the prep was excellent (Miralax/Gatorade/2tablets Bisacodyl/Magnesium Citrate). This was a complete examination throughout the entire colon. Findings: Diverticulosis. Location: - sigmoid. Description: mild. Size:small. No inflammation present. Impression: Screening Colonoscopy Screening Colonoscopy Plan Repeat colonoscopy in 10 years. If you have signs or symptoms of lower GI illness or a new diagnosis ofcolon cancer in an immediate family member, you should contact your GIprovider or your primary provider to discuss whether your next examshould be repeated sooner. We will attempt to contact you at appropriate intervals via U.S. mail. Wemay not be able to find you or contact you at that time, therefore youshould know that the responsibility for following our recommendation restswith you. If you don't hear from us at the time your procedure is due,please contact our office to schedule an appointment. If your contactinformation should change, please contact our office so that we can updateyour records. Electronically signed by: Ronit Rivera MD 05/14/2021 Medications: Medication Dose Sig Description PRN Status PRN Reason Comments Lexapro 10 mg tablet 10 mg take 1 tablet by oral route every day Ntaking as directed spironolactone 50 mg tablet 50 mg take 1 tablet by oral route 2 timesevery day N taking as directed Zilxi 1.5 % topical foam 1.5 % apply by topical route every day a thinlayer to the affected area(s) at the same time each day at least 1 hourbefore bedtime N taking as directed Allergies: Medication Name Ingredient Reaction Comment Levaquin LEVOFLOXACIN Intestinal issues that turned into yeast infection(moderate) MORPHINE itching (mild to moderate) Vital Signs: Date Time Systolic Diastolic Height Weight BMI 05/14/2021 7:42 AM 136 67 60 in 156.40 30.50 Race: White Ethnicity: Not or Preferred Language: Beninese cc: Lamar Ramsey MD cc: Lamar Ramsey MD [facility] [phone] Ronit Rivera MD OTHER * (ABNORMAL) LIPID PANEL W REFLEX MEASURED LDL (12/29/2020 10:14 AM CDT) CHOLESTEROL,TOTAL 210(H) 100 - 199 mg/dL 12/29/2020 3:42 PM CDT [facility] TRIGLYCERIDES 90 <150 mg/dL 12/29/2020 3:42 PM CDT [facility] HDL CHOLESTEROL 41 >40 mg/dL 3:42 PM CDT [facility] NON-HDL CHOLESTEROL 169(H) <145 mg/dl 12/29/2020 3:42 PM CDT [facility] CHOL/HDL RATIO 5.12(H) <4.50 12/29/2020 3:42 PM CDT [facility] LDL CHOLESTEROL 151(H) <=130 mg/dL 12/29/2020 3:42 PM CDT [facility] VLDL CHOLESTEROL 18 mg/dL 12/30/19 21 3:42 PM CDT [facility] PROVIDER ORDERED STATUS RANDOM 12/29/2020 3:42 PM CDT [facility] Blood BLOOD SPECIMEN / Unknown Venipuncture / Unknown 12/29/2020 10:14 AM CDT 12/29/2020 10:14 AM CDT Lamar Ramsey MD CHEMISTRY [facility] [address] [place] [address], * XR MAMMO BILAT SCREENING (09/21/2020 4:01 PM PRINTING EQUIPMENT MECHANIC APPRENTICE) Anatomical Region Laterality Modality BREASTS, Breast Left, Breast Right Bilateral Mammography Impressions 09/22/2020 3:25 PM PRINTING EQUIPMENT MECHANIC APPRENTICE ??There is no radiographic evidence for malignancy. ??Recommend annual mammograms. A lay language report of this examination will be provided to the patient. MAMMOGRAM ASSESSMENT: ??ACR 1 Negative Narrative 09/22/2020 3:25 PM PRINTING EQUIPMENT MECHANIC APPRENTICE XR MAMMO BILAT SCREENING [[id number]] CLINICAL HISTORY: ??This is an asymptomatic 64 y.o. patient. INDICATION FOR EXAM: Mammogram Screening. TECHNIQUE: CC & MLO views were obtained. ??This digital study was evaluated with the assistance of Computer-Aided Detection. COMPARISON FILM: Yes 12/07/18 ?? 04/11/17 ?? FINDINGS: ??The breasts are heterogeneously dense, which may obscure small masses. There are no dominant masses, suspicious micro calcifications or areas of architectural distortion. [place] [facility] * XR DXA BONE DENSITY 2 SITES AXIAL (06/17/2019 9:21 AM PRINTING EQUIPMENT MECHANIC APPRENTICE) Anatomical Region Laterality Modality Spine, HIPS, HIPL, HIPR Computed Radiography Narrative 06/18/2019 6:55 PM PRINTING EQUIPMENT MECHANIC APPRENTICE Your patient JUSTINO ROMANO completed a BMD test on 06/17/2019 using the Fur and Mask DXA System (analysis version: 13.60) manufactured by [employer]. ??The following summarizes the results of our evaluation. PATIENT BIOGRAPHICAL: Name: JUSTINO ROMANO Date: 1955 Height: 60.0 in. Gender: Female Exam Date: 06/17/2019 Weight: 158.0 lbs. Indications: ., hysterectomy., Postmenopausal. Fractures: None. Treatments: HRT ??Hormone Replacement Therapy. ASSESSMENT: The BMD measured at Femur Neck Left is 0.877 g/cm?? with a T-score of -1.2. This patient is considered osteopenic according to World Health Organization (WHO) criteria. ??Bone density is between 10 and 25% below young normal. ??Fracture risk is moderate. ??Treatment is advised. The probability of a major osteoporotic fracture is 7.4% within the next ten years. The probability of a hip fracture is 0.5% within the next ten years. Site Region Measured Measured WHO Young Adult BMD ??Date Age Classification T-score ?? AP Spine L1-L4 06/17/2019 61.6 Normal -0.8 1.086 g/cm? DualFemur Neck Left 06/17/2019 61.6 Osteopenia -1.2 0.877 g/cm? DualFemur Neck Right 06/17/2019 61.6 Normal -0.6 0.955 g/cm? DualFemur Total Left 06/17/2019 61.6 Normal -0.3 0.968 g/cm? DualFemur Total Right 06/17/2019 61.6 Normal 0.1 1.018 g/cm? World Health Organization (WHO) criteria for post-menopausal, Women: Normal: T-score at or above -1 SD Osteopenia: T-score between -1 and -2.5 SD Osteoporosis: T-score at or below -2.5 SD RECOMMENDATIONS: NOF Guidelines recommend people with T-scores between -1 and -2.5 (osteopenia) consider taking an osteoporosis medication when they have certain risk factors. ??Hormone therapy may be an option based on review of risks and benefits of treatment. ??All patients should ensure an adequate intake of dietary calcium and vitamin D. ?? FOLLOW-UP: People with diagnosed cases of osteoporosis or at high risk for fracture should have regular bone mineral density tests. ??For patients eligible for Medicare, routine testing is allowed once every 2 years. ??The testing frequency can be increased to one year for patients who have rapidly progressing disease, those who are receiving or discontinuing medical therapy to restore bone mass, or have additional risk factors. Based on these results, a follow-up exam is recommended in June 2021 Vania Lewis MD DEXA from Last 3 Months or Most Recently Relevant to Health Maintenance Care Teams Senior Quality Assurance Analyst Relationship Specialty [place] [address] [place] [address] PCP - General Family Practice 08/13/14
--- OUTSIDE RECORDS SUMMARY | 2024-04-19 13:13 | XMS_ITS | Clinical Summary ---
Author Organization [facility] Address [address] [place] [address]. [place] [address] Care Team Providers Care Cafeteria Clerk Name Role Phone Vania Lewis MD Primary Care Provider + Allergies Active Allergy Reactions Criticality Noted Date Comments Morphine 04/07/2015 Statins 04/23/2019 Body aches Medications Medication Sig Dispensed Refills Start Date End Date Status Escitalopram Oxalate (LEXAPRO PO) Take 10 mg by mouth At Bedtime Active Probiotic Product (PROBIOTIC DAILY PO) Acti ve CINNAMON PO Active Multiple Vitamins-Minerals (MULTIVITAMIN PO) Active Active Problems Patient Care Coordination No te Formatting of this note migh t be different from the original. [email or web address] No known active problems Resolved Problems Problem Noted Date Diagnosed Date Resolved Date Arch pain 06/25/2015 08/07/2015 Plantar fascial fibromatosis 06/25/2015 08/07/2015 Social History Tobacco Use Types Packs/Day Years Used Date Smoking Tobacco: Never Smokeless Tobacco: Never Alcohol Use Standard Drinks/Week Comments Not Asked 0 (1 standard drink = 0.6 oz pur e alcohol) Sex and Gender Information Value Date Recorded Sex Assigned at Not on file Gender Identity Not on file Sexual Orientation Not on file Last Filed Vital Signs Vital Sign Reading Time Taken Comments Blood Pressure 145/76 04/23/2019 6:45 AM CDT Pulse 59 04/23/2019 6:45 AM CDT Temperature 36.8 ??C (98.3 ??F) 04/23/2019 4:54 AM CD T Respiratory Rate 18 04/23/2019 4:54 AM CDT Oxygen Saturation 97% 04/23/2019 4:54 AM CDT Inhaled Oxygen Concentration - - Weight 72.6 kg (160 lb) 07/28/2015 8:16 AM BACKWINDER Height 153.7 cm (5' 0.5) 07/28/2015 8:16 AM BACKWINDER Body Mass Index 30.73 07/28/2015 8:16 AM BACKWINDER Plan of Treatment Not on file Care Teams Cafeteria Clerk Relationship Specialty Start Date End Date Vania Lewis MD [address] [address] PCP - General Family Practice 04/23/19
--- OUTSIDE RECORDS SUMMARY | 2024-04-19 13:13 | XMS_ITS | Referral Summary ---
Author Organization [facility] Address [address] [place] [address]. [place] [address] Care Team Providers Care Telephone Clerk Telegraph Office Name Role Phone Vania Lewis MD Primary [...] 72.6 kg (160 lb) 07/28/2015 8:16 AM AGENCY DEVELOPMENT MANAGER Height 153.7 cm (5' 0.5) 07/28/2015 8:16 AM AGENCY DEVELOPMENT MANAGER Body Mass Index 30.73 07/28/2015 8:16 AM AGENCY DEVELOPMENT MANAGER Plan of Treatment Not on file Care Teams Telephone Clerk Telegraph Office Relationship Specialty Start Date End Date Vania Lewis MD [address] [address] PCP - General Family Practice 04/23/19
--- NOTE | 2024-04-19 13:20 | CRLHL7_ITS ---
For Patients: As a result of the Century Cures Act, medical imaging exams and procedure reports are released immediately into your electronic medical record. You may view this report before your referring provider. If you have questions, please contact your health care provider. BILATERAL SCREENING MAMMOGRAM WITH COMPUTER-AIDED DETECTION AND TOMOSYNTHESIS TECHNIQUE: CC and MLO views were obtained. These mammographic images have been obtained using full-field digital technique. These mammographic images were interpreted with the benefit of computer-aided detection. Breast tomosynthesis was used in this interpretation. COMPARISON FILM: 01/31/2023, 09/21/2020, 12/07/2018. FINDINGS: The breasts are heterogeneously dense, which may obscure small masses. IMPRESSION: There is no radiographic evidence for malignancy. ASSESSMENT: BI-RADS Category 1: Negative RECOMMENDATION: Routine screening mammogram in 1 year. A lay language report of this examination will be provided to the patient. BARRINGTON TILLEY M.D. Diagnostic Radiologist [email or web address] Transcribed: 12:[address]/Dictated by: Barrington Tilley MD @ 04/22/2024 10:42:00 AM (Electronically Signed)
== END 2024-04-19 13:08 | disposition home or self-care (01) ==
LOC: MAMMO 13:08
PROVIDERS: PCP Physician Assistant Medical; Visit Provider Physician Assistant Medical
DX: Z12.31 Encounter for screening mammogram for malignant neoplasm of breast (principal); R92.333 Mammographic heterogeneous density, bilateral breasts
CPT/HCPCS: 77063; 77067

== ENCOUNTER 2025-02-19 09:29 | Outpatient (CLI) | payer BC, SELFPAY | END 2025-02-19 09:30 | disposition home or self-care (01) | PROVIDERS: PCP Physician Assistant Medical; Visit Provider Physician Assistant Medical | DX: L65.9 Nonscarring hair loss, unspecified (principal); R73.09 Other abnormal glucose; R68.82 Decreased libido; I10 Essential (primary) hypertension; R53.83 Other fatigue; E07.9 Disorder of thyroid, unspecified; R74.8 Abnormal levels of other serum enzymes | CPT/HCPCS: 80053; 82306; 82607; 82728; 84443 ==